=== PATIENT | female | born 1965 | race Caucasian/White ===

== ENCOUNTER 2018-10-07 05:57 | Day surgery (SDC) | payer BC ==
[~2018-10-07] VITALS: Ht 170.2 cm; Wt 139.0 kg
[2018-10-07] MEDS ORDERED: BUPIVACAINE/EPI 0.5% 1:200K ONE (06:19)
[2018-10-07] MEDS ORDERED: LACTATED RINGERS 1,000 ML IV SCH (06:50)
[2018-10-07 06:53] VITALS: BP 129/84
[2018-10-07 07:09] VITALS: BP 129/94
[2018-10-07] MEDS ORDERED: VALS1TAB28 PO (07:16)
[2018-10-07 07:26] LABS: HCG UR SG 1.027 (1.003-1.030)
[2018-10-07 07:37] LABS: ALANINE AMINOTRANSFERASE 50 U/L (12-78); ALBUMIN 3.5 g/dL (3.4-5.0); ANION GAP 4 mmol/L (5-15); CALCIUM 8.6 mg/dL (8.5-10.1); CHLORIDE 111 mmol/L (98-107); CREATININE 0.89 mg/dL (0.55-1.02)
[2018-10-07 07:39] LABS: ALKALINE PHOSPHATASE 72 U/L (45-117); BILIRUBIN,TOTAL 0.5 mg/dL (0.2-1.0); TOTAL PROTEIN 6.8 g/dL (6.4-8.2)
[2018-10-07] MEDS ORDERED: MIDAZOLAM 1 MG/ML, 2ML ONE (07:42)
[2018-10-07] MEDS ORDERED: FENTANYL PF 250 MCG/5ML ONE (07:43)
[2018-10-07] MEDS ORDERED: CEFAZOLIN 1,000 MG ONE (08:16)
[2018-10-07] MEDS ORDERED: PROPOFOL 10 MG/ML, 20ML ONE (08:16)
[2018-10-07] MEDS ORDERED: DEXAMETHASONE 4 MG/ML, 1ML ONE (08:16)
[2018-10-07] MEDS ORDERED: MEPERIDINE/PF 25MG/0.5ML IVPush PRN (09:00)
[2018-10-07] MEDS ORDERED: hydrALAzine 20 MG/ML, 1ML IV PRN (09:00)
[2018-10-07] MEDS ORDERED: ALBUTEROL SULFATE 2.5 MG/3 ML NPPB PRN (09:00)
[2018-10-07] MEDS ORDERED: VALSARTAN 320 MG TABLET PO SCH (09:00)
[2018-10-07] MEDS ORDERED: DIAZEPAM 5 MG/ML, 2ML IVPush PRN (09:00)
[2018-10-07] MEDS ORDERED: HYDROCHLOROTHIAZIDE 12.5 MG CAPSULE PO SCH (09:00)
[2018-10-07] MEDS ORDERED: OXYcodone 5 MG/5 ML ORAL.SOL UDC PO PRN (09:00)
[2018-10-07] MEDS ORDERED: PROMETHAZINE 25 MG/ML, 1ML IV PRN (09:00)
[2018-10-07] MEDS ORDERED: ACETAMINOPHEN 325 MG TABLET PO PRN (09:00)
[2018-10-07] MEDS ORDERED: LABETALOL 5MG/ML, 20ML IV PRN (09:00)
[2018-10-07] MEDS ORDERED: ACETAMINOPHEN 650 MG/20.3 ML UDC ONE (09:51)
[2018-10-07] MEDS ORDERED: FENTANYL PF 100 MCG/2ML ONE (09:51)
[2018-10-07] MEDS ORDERED: OXYcodone 5 MG/5 ML ORAL.SOL UDC ONE (09:52)
[2018-10-07] MEDS: FENTANYL PF 100 MCG/2ML IV PRN ×2 (09:53→10:15)
[2018-10-07] MEDS ORDERED: KETOROLAC 30 MG/1 ML ONE (09:55)
[2018-10-07] MEDS ORDERED: KETOROLAC 30 MG/1 ML IVPush SCH (10:00)
[2018-10-07] MEDS ORDERED: HYDROmorphone 2 MG/ML, 1ML ONE (10:33)
[2018-10-07] MEDS: HYDROmorphone 2 MG/ML, 1ML IVPush PRN ×2 (10:35→10:43)
== END 2018-10-07 12:20 | disposition home or self-care (01) ==
LOC: OUT 05:57
PROVIDERS: ATTEND Orthopaedic Surgery
DX: S46.211A Strain of muscle, fascia and tendon of other parts of biceps, right arm, initial encounter (principal); I10 Essential (primary) hypertension; E66.9 Obesity, unspecified; Z87.891 Personal history of nicotine dependence; Z68.42 Body mass index [BMI] 45.0-49.9, adult; Z72.89 Other problems related to lifestyle; X58.XXXA Exposure to other specified factors, initial encounter; Y93.89 Activity, other specified; Y92.89 Other specified places as the place of occurrence of the external cause; Y99.8 Other external cause status
CPT/HCPCS: 24342; 36415; 80053; 81025; C1713; J0690; J1100; J1170; J1885; J2250; J2704; J3010; J7120